=== PATIENT | male | born 1995 | race Caucasian/White ===

== ENCOUNTER 2017-11-12 17:37 | Emergency (ER) | payer BC ==
[2017-11-12] MEDS ORDERED: Proparacaine 0.5% Ophth Soln 15 ML Bottle EYELF ONE (18:07)
[2017-11-12] MEDS ORDERED: Fluorescein 0.6 MG Ophth Strip EYELF ONE (18:08)
--- NOTE | 2017-11-12 18:09 | EDM.PDOC ---
<Sky Elliott L - Last Filed: 11/12/17 20:30> ED HPI GENERAL MEDICAL PROBLEM - General Chief Complaint: Eye Problems Stated Complaint: SOMETHING STUCK IN HIS EYE Time Seen by Provider: 11/12/17 18:09 Source of Information: Reports: Patient - History of Present Illness INITIAL COMMENTS - FREE TEXT/NARRATIVE: Patient is here for evaluation of foreign body to his left eye. Patient states that he was swelling earlier today, then crushing oil filters. Patient does not know specific moment something that it is side but he states he has had for body sensation since approximately 4 PM. Patient states that he feels like there is something in there, has irritation and pain to his left eye. Also has increased tearing to his left eye. He denies any change in vision. Reports that his tetanus is up-to-date. Left Eye Pain Score (Numeric/FACES): 7 - Related Data Allergies Allergy/AdvReac Type Severity Reaction Status Date / Time No Known Allergies Allergy Verified 11/12/17 18:08 Home Meds: Home Meds Ofloxacin [Ocuflox 0.3% Ophth Soln] 1 drop OP QID 5 Days #1 bottle 11/12/17 [Rx] ED ROS GENERAL - Review of Systems Review Of Systems: See Below Constitutional: Reports: No Symptoms HEENT: Reports: Eye Pain, Other (Patient states it feels like there is FB in left eye). Denies: Vision Change Skin: Reports: No Symptoms Neurological: Reports: No Symptoms ED EXAM GENERAL W FULL EYE - Physical Exam Exam: See Below Exam Limited By: No Limitations General Appearance: Alert, WD/WN, No Apparent Distress Eye Exam: Right Eye: PERRL, Left Eye: Foreign Body (Small, metallic-appearing FB to 7 o'clock position adjacent to iris of left eye) Eyelids: Bilateral: Normal Appearance Conjunctiva & Sclera: Right: Normal Appearance, Left: Conjunctival Edema, Injected Extraocular Movements: Bilateral: Intact Pupils: Normal Accommodation Neurological: Alert, Oriented Psychiatric: Normal Affect, Normal Mood Skin Exam: Warm, Dry Course - Vital Signs Last Recorded V/S: Last Vital Signs Temp 37.1 C 11/12/17 18:05 Pulse 70 11/12/17 18:05 Resp 20 11/12/17 18:05 BP 121/78 11/12/17 18:05 Pulse Ox 98 11/12/17 18:05 - Orders/Labs/Meds Meds: Medications Discontinued Medications Generic Name Dose Route Start Last Admin Trade Name Alisson PRN Reason Stop Dose Admin Fluorescein Sodium 0.6 mg 11/12/17 18:08 11/12/17 18:14 Ful-Lissette EYELF 11/12/17 18:09 0.6 mg ONETIME ONE Administration Proparacaine HCl 1 ml 11/12/17 18:07 11/12/17 18:14 Proparacaine 0.5% Ophth Soln EYELF 11/12/17 18:08 1 drop ONETIME ONE Administration - Re-Assessments/Exams Free Text/Narrative Re-Assessment/Exam: Foreign bodies to the 7:00 and 4 o'clock position were removed by Dr. Loredo. Fluorescein examination after this demonstrates corneal abrasions to both the 4: 00 and 7 o'clock position. Patient will be discharged with Ocuflox drops 4 times a day. He is to follow-up with ophthalmology tomorrow morning for recheck, patient was given the number to call to schedule this first in the morning. He will return to the emergency room if any new or worsening symptoms or any change in vision. 11/12/17 19:29 Departure - Departure Time of Disposition: 18:57 Disposition: Home, Self-Care 01 Condition: Good Clinical Impression: Corneal abrasion Qualifiers: Encounter type: initial encounter Laterality: left Qualified Code(s): S05.02XA - Injury of conjunctiva and corneal abrasion without foreign body, left eye, initial encounter Eye foreign body Qualifiers: Encounter type: initial encounter Laterality: left Qualified Code(s): T15.92XA - Foreign body on external eye, part unspecified, left eye, initial encounter - Discharge Information Prescriptions: Ofloxacin [Ocuflox 0.3% Ophth Soln] 1 drop OP QID 5 Days #1 bottle Instructions: Eye Foreign Body, [id number], Corneal Abrasion Referrals: PCP,None [Primary Care Provider] - Forms: ED Department Discharge Additional Instructions: Call to schedule a follow-up exam with opthalmology tomorrow morning. Dr Schmitz [phone] If you have any change in vision, fever over 101 or worsening symptoms you should return to the emergency room. <Fabian Loredo - Last Filed: 11/13/17 20:05> ED EYE w/ Add Procedure - Eye Procedure Alcaine Drops Administered: Yes Eye FB Removal: Removal w/ Cotton Swab, Removal w/ Needle Progress: Patient's eye was anesthetized. Then with sterile 18 G needle I approached the 7 o'cock foreign body parallel to the surface of the eye and gently lifted it out. I then used a sterile cotton swab to gently remove the 4 o'clock foreign body. Patient tolerated the procedure well with no obvious complications. Fluorescein exam performed afterwards revealed corneal abrasions.
== END 2017-11-12 19:18 | disposition home or self-care (01) ==
LOC: JD.ED 17:37
DX: T15.02XA Foreign body in cornea, left eye, initial encounter (principal); X58.XXXA Exposure to other specified factors, initial encounter
CPT/HCPCS: 65220; 65222; 99283; 99283-25

== ENCOUNTER 2017-11-24 17:31 | Emergency (ER) | payer OTHER, BC ==
--- NOTE | 2017-11-24 17:59 | EDM.PDOC ---
ED HPI GENERAL MEDICAL PROBLEM - General Chief Complaint: Laceration Stated Complaint: CHIN AND LIP LAC Time Seen by Provider: 11/24/17 17:45 Source of Information: Reports: Patient History Limitations: Reports: No Limitations - History of Present Illness INITIAL COMMENTS - FREE TEXT/NARRATIVE: Patient is a 22-year-old male presents ED complaining of a laceration just below the right side of lower lip. 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 There was no loss conscious. Pain is localized. There is no pain with opening of his jaw. No loose teeth present. Bleeding controlled with direct pressure. Tetanus status up -to-date. Denies any head or neck pain. Lower Lip Pain Score (Numeric/FACES): 6 - Related Data Allergies Allergy/AdvReac Type Severity Reaction Status Date / Time No Known Allergies Allergy Verified 11/12/17 18:08 Past Medical History - Past Health History Medical/Surgical History: Denies Medical/Surgical History Musculoskeletal History: Reports: Other (See Below) Other Musculoskeletal History: right kknee surgery - Past Surgical History Musculoskeletal Surgical History: Reports: Shoulder Surgery Social & Family History - Family History Family Medical History: Noncontributory - Tobacco Use Smoking Status *Q: Current Every Day Smoker Years of Tobacco use: 4 Packs/Tins Daily: 0.5 - Caffeine Use Caffeine Use: Reports: Energy Drinks - Recreational Drug Use Recreational Drug Use: No ED ROS GENERAL - Review of Systems Review Of Systems: ROS reveals no pertinent complaints other than HPI. ED EXAM, SKIN/RASH Exam: See Below Exam Limited By: No Limitations General Appearance: Alert, WD/WN, No Apparent Distress Eye Exam: Bilateral Eye: Normal Inspection Ears: Hearing Grossly Normal Nose: Normal Inspection Throat/Mouth: Normal Voice, No Airway Compromise Neck: Normal Inspection, Supple, Non-Tender, Full Range of Motion Respiratory/Chest: No Respiratory Distress, No Accessory Muscle Use Cardiovascular: Normal Peripheral Pulses, Regular Rate, Rhythm Peripheral Pulses: 2+: Radial (R) Neurological: Alert, Oriented, CN II-XII Intact, Normal Cognition, No Motor/ Sensory Deficits Psychiatric: Normal Affect, Normal Mood Skin: Warm, Dry, Intact, Normal Color, No Rash Location, Skin: Face (Patient is approximately 3 cm laceration just below the lower lip on the right side. There was also a small 0.2 laceration to the inner lip on the same side. This is not through and through. Patient has no loose teeth. No pain along the base of the gumline with palpation. He has no trismus.) ED SKIN PROCEDURES - Laceration/Wound Repair Right Face Lac/Wound length In cm: 3 Appearance: Subcutaneous, Clean Distal NVT: Neuro & Vascular Intact, No Tendon Injury Skin Prep: Chlorhexidine (Hibiciens), Saline Exploration/Debridement/Repair: Wound Explored, In a Bloodless Field, Explored to Base, No Foreign Material Found Closed with: Dermabond Drain Placement: No Sterile Dressing Applied: None Tetanus Status Addressed: Yes Complications: No Course - Vital Signs Last Recorded V/S: Last Vital Signs Temp 98.2 F 11/24/17 17:39 Pulse 80 11/24/17 17:39 Resp 16 11/24/17 17:39 BP 136/96 H 11/24/17 17:39 Pulse Ox 98 11/24/17 17:39 - Re-Assessments/Exams Free Text/Narrative Re-Assessment/Exam: Laceration will be closed with Dermabond. Laceration closed with no complications. Discharge instructions as documented. Departure - Departure Time of Disposition: 17:58 Disposition: Home, Self-Care 01 Condition: Good Clinical Impression: Laceration of face Qualifiers: Encounter type: initial encounter Qualified Code(s): S01.81XA - Laceration without foreign body of other part of head, initial encounter - Discharge Information Instructions: Facial Laceration, Stitches, [place], or Adhesive Wound Closure, [id number] Referrals: PCP,None [Primary Care Provider] - Forms: ED Department Discharge, ED Return to Work/School Form Additional Instructions: CHECK WOUND APPEARANCE Some swelling, redness, and pain are common with all wounds and normally will go away as the wound heals. If swelling, redness, or pain increases or if the wound feels warm to the touch, contact a doctor. Also contact a doctor if the wound edges reopen or separate. REPLACE BANDAGES If your wound is bandaged, keep the bandage dry. Replace the dressing daily until the adhesive film has fallen off or if the bandage should become wet, unless otherwise instructed by your physician. When changing the dressing, do not place tape directly over the DERMABOND adhesive film, because removing the tape later may also remove the film. AVOID TOPICAL MEDICATIONS Do not apply liquid or ointment medications or any other product to your wound while the DERMABOND adhesive film is in place. These may loosen the film before your wound is healed. KEEP WOUND DRY AND PROTECTED You may occasionally and briefly wet your wound in the shower or bath. Do not soak or scrub your wound, do not swim, and avoid periods of heavy perspiration until the DERMABOND adhesive has naturally fallen off. After showering or bathing, gently blot your wound dry with a soft towel. If a protective dressing is being used, apply a fresh, dry bandage, being sure to keep the tape off the DERMABOND adhesive film. Apply a clean, dry bandage over the wound if necessary to protect it. Protect your wound from injury until the skin has had sufficient time to heal. Do not scratch, rub, or pick at the DERMABOND adhesive film. This may loosen the film before your wound is healed. Protect the wound from prolonged exposure to sunlight or tanning lamps while the film is in place. If you have any questions or concerns about this product, please consult your doctor.
== END 2017-11-24 18:20 | disposition home or self-care (01) ==
LOC: JD.ED 17:31
DX: S01.81XA Laceration without foreign body of other part of head, initial encounter (principal); S01.511A Laceration without foreign body of lip, initial encounter; W22.8XXA Striking against or struck by other objects, initial encounter; F17.210 Nicotine dependence, cigarettes, uncomplicated
CPT/HCPCS: 12013; 99283-25